=== PATIENT | male | born 1930 | race Caucasian/White ===

== ENCOUNTER 2017-11-23 08:49 | Observation (INO) | payer OTHER ==
[2017-11-23] MEDS ORDERED: ASPIRIN 81 MG CHEWABLE TAB PO ONE (08:57)
--- NOTE | 2017-11-23 09:02 | CPEKG ---
Heart Rate: 73 RR Interval: 822 P-R Interval: 192 QRSD Interval: 100 QT Interval: 408 QTC Interval: 450 P [place]: 43 QRS [place]: 27 T Wave [place]: 45 EKG Severity - NORMAL ECG - EKG Impression: SINUS RHYTHM Electronically Signed By: Crys Zuñiga 23-Nov-2017 09:11:46
--- NOTE | 2017-11-23 09:09 | EDPHY ---
H & P Time Seen by Provider: 11/23/17 08:57 HPI/ROS: HPI Chest pain, shortness of breath. 87-year-old male by private vehicle with his . This patient has a history of coronary artery disease. He has had 2 stents placed in the past about 5 years ago by his economics analyst Dr. Andrew Frances. He reports that he woke up this morning and at approximately 7:00 a.m. he noticed he had some pain in his left upper calf. She describes this as a cramping like sensation. He then developed left-sided chest pain described as sharp and squeezing with associated shortness of breath. Worse with exertion. He is currently on Plavix. No other antiplatelet or anticoagulant medications. Now as I am talking to him he denies any shortness of breath laying in his gurney. No chest pain at this time. No calf pain. ROS: Constitutional: No fever, no chills. No weakness. Eyes: No discharge. No changes in vision. ENT: No sore throat. No nasal congestion or rhinorrhea. Respiratory: No cough. As above. Cardiac: As above, no palpitations. Gastrointestinal: No abdominal pain, no vomiting, no diarrhea. Genitourinary: No hematuria. No dysuria or increased frequency with urination. Musculoskeletal: No back pain. No neck pain. As above. No myalgias or arthralgias. Skin: No rashes. Neurological: No headache. No focal weakness or altered sensation. Past medical history: As above. He takes a statin medication as well. Social history: Nonsmoker. Here with his . No alcohol. Physical Exam: General Appearance: Alert, no distress. This patient is responding to questions appropriately and in full sentences. This patient appears well- hydrated and well-nourished. Eyes: Pupils equal and round no pallor or injection. No lid edema, erythema or injection. Respiratory: There are no retractions, lungs are clear to auscultation with good air movement bilaterally. Cardiovascular: Regular rate and rhythm. No murmur. Gastrointestinal: Abdomen is soft and nontender, no masses, bowel sounds normal. No focal tenderness at McBurney's point. No Gabriel sign. Neurological: Motor sensory function is grossly intact. Cranial nerves are normal. Gait is normal. Skin: Warm and dry, no rashes. Musculoskeletal: Neck is supple and nontender. Extremities are symmetrical. No left-sided calf tenderness on palpation. No palpable cords in the left calf musculature. Negative Katy sign. All joints range without pain or impingement. Psychiatric: No agitation. No depression. Database: EKG: EKG time is 9:01 a.m.; EKG shows a narrow complex normal sinus rhythm with a ventricular rate of 73. The [place], QRS, QT intervals are within normal limits. There are no ST-T wave changes indicative of ischemic or injury pattern. No evidence of right heart strain. Interpreted by me. Imaging: Chest x-ray AP portable; the cardiac mediastinal silhouette is unremarkable. No evidence of infiltrate or pneumothorax. No acute cardiopulmonary disease process noted. Interpreted by me. Left lower extremity ultrasound; no evidence of DVT. He does have superficial clot lesser saphenous vein indicative of superficial thrombophlebitis. Results were discussed with staff radiologist Dr. Thomas Hodges. CT angiogram of chest; significant for extensive pulmonary embolism. Large PE distal left pulmonary artery. No saddle embolus left lingular segmental clot. Diffuse segmental clot on the right side. The right upper lobe is the least affected. Results were discussed with staff radiologist Dr. Thomas Hodges. Procedures: Emergency department course: IV placed. Vital signs reviewed. EKG obtained and reviewed by myself. He was given 324 mg of chewed aspirin. 9:40 a.m., patient re-evaluated. Resting comfortably at this time. No chest pain. No shortness of breath at rest. Results of elevated D-dimer discussed, need for CT angiogram of chest discussed. Patient endorses. 10:25 a.m., patient re-evaluated. Diagnosis discussed. Vital signs remained stable. No shortness of breath or chest pain at this time. Explained plan for admission and initial treatment with IV heparin. Hospitalist paged. 10:40 a.m., spoke with hospitalist. Patient accepted for admission to Dr. Scruggs. Patient started on IV heparin per protocol in the emergency department. Diagnosis and treatment plan discussed with patient and his . All their questions were answered. The patient was admitted to PCU in stable condition. Differential Diagnosis: The differential diagnosis on this patient includes but is not limited to DVT, PE, acute coronary syndrome, esophageal spasm, anxiety reaction. This represents a partial list of diagnoses considered. These considerations are based on history, physical exam, past history, reassessment and diagnostic testing. Smoking Status: Never smoked Constitutional: Initial Vital Signs Temperature (C) 36.7 C 11/23/17 08:50 Heart Rate 81 11/23/17 08:50 Respiratory Rate 16 11/23/17 08:50 Blood Pressure 119/79 11/23/17 08:50 O2 Sat (%) 91 L 11/23/17 08:50 O2 Delivery Mode Room Air Allergies/Adverse Reactions: Cephalosporins Allergy (Unknown, Verified 11/23/17 08:50) Home Medications: Medication Instructions Recorded Clopidogrel Bisulfate [Plavix] 75 mg PO DAILY 04/12/11 Ezetimibe/Simvastatin [Vytorin 1 each PO HS 04/12/11 10-40 Mg Tablet] Medical Decision Making - Diagnostics Imaging Results: Imaging Impressions Chest X-Ray 11/23/17 08:58 Impression: Negative portable chest. Extremity Venous Study 11/23/17 09:05 Impression: 1. No evidence of deep vein thrombosis in the left leg. 2. Acute/subacute thrombus in the mid calf left lesser saphenous vein consistent with superficial venous lumbar phlebitis. Findings and recommendations discussed with Crys Zuñiga MD at 10: 00 AM hour, 11/23/2017. Final report concurs with initial preliminary interpretation. - Data Points Laboratory Results: Laboratory Results 11/23/17 09:03 11/23/17 09:03 11/23/17 11/23/17 11/23/17 09:03 09:03 09:03 WBC 12.78 10^3/uL H 10^3/uL (3.80-9.50) RBC 5.09 10^6/uL 10^6/uL (4.40-6.38) Hgb 17.4 g/dL g/dL (13.7-17.5) Hct 49.6 % % (40.0-51.0) MCV 97.4 fL fL (81.5-99.8) MCH 34.2 pg H pg (27.9-34.1) MCHC 35.1 g/dL g/dL (32.4-36.7) RDW 13.7 % % (11.5-15.2) Plt Count 138 10^3/uL L 10^3/uL (150-400) MPV 9.8 fL fL (8.7-11.7) Neut % (Auto) 82.1 % H % (39.3-74.2) Lymph % (Auto) 8.6 % L % (15.0-45.0) Ogle % (Auto) 7.3 % % (4.5-13.0) Eos % (Auto) 0.9 % % (0.6-7.6) Baso % (Auto) 0.4 % % (0.3-1.7) Nucleat RBC Rel Count 0.0 % % (0.0-0.2) Absolute Neuts (auto) 10.50 10^3/uL H 10^3/uL (1.70-6.50) Absolute Lymphs (auto) 1.10 10^3/uL 10^3/uL (1.00-3.00) Absolute Monos (auto) 0.93 10^3/uL H 10^3/uL (0.30-0.80) Absolute Eos (auto) 0.11 10^3/uL 10^3/uL (0.03-0.40) Absolute Basos (auto) 0.05 10^3/uL 10^3/uL (0.02-0.10) Absolute Nucleated RBC 0.00 10^3/uL 10^3/uL (0-0.01) Immature Gran % 0.7 % % (0.0-1.1) Immature Gran # 0.09 10^3/uL 10^3/uL (0.00-0.10) PT 14.2 SEC SEC (12.0-15.0) INR 1.08 (0.83-1.16) APTT 36.9 SEC SEC (23.0-38.0) D-Dimer 5.09 ug/mLFEU H ug/mLFEU (0.00-0.50) Sodium 138 mEq/L mEq/L (135-145) Potassium 4.6 mEq/L mEq/L (3.5-5.2) Chloride 103 mEq/L mEq/L (97-110) Carbon Dioxide 24 mEq/l mEq/l (22-31) Anion Gap 11 mEq/L mEq/L (8-16) BUN 25 mg/dL H mg/dL (7-23) Creatinine 1.3 mg/dL mg/dL (0.7-1.3) Estimated GFR 52 Glucose 122 mg/dL H mg/dL (70-100) Calcium 9.1 mg/dL mg/dL (8.5-10.4) Creatine Kinase 35 IU/L IU/L (0-224) CK-MB (CK-2) Fraction 1.04 ng/mL ng/mL (0.00-3.19) Troponin I 0.014 ng/mL ng/mL (0.000-0.034) NT-Pro-B Natriuret Pep 125 pg/mL pg/mL (0-450) Medications Given: Discontinued Medications Aspirin (Aspirin) 324 mg PO EDNOW ONE Stop: 11/23/17 08:58 Last Admin: 11/23/17 09:10 Dose: 324 mg Departure - Departure Disposition: [facility] Inpatient Acute Clinical Impression: Chest pain, History of coronary artery disease, Pulmonary embolism, bilateral Referrals: Ethan Gaviria MD [Primary Care Provider] - As per Instructions
[2017-11-23 09:17] LABS: PLATELET COUNT 138 10^3/uL (150-400)
[2017-11-23 09:24] LABS: INR 1.08 (0.83-1.16); PROTIME(PATIENT) 14.2 SEC (12.0-15.0)
[2017-11-23 09:30] LABS: CREATINE KINASE 35 IU/L (0-224)
[2017-11-23] MEDS ORDERED: IOPAMIDOL (ISOVUE 370) 100 ML BTL IV ONE (09:47)
[2017-11-23] MEDS ORDERED: ENOXAPARIN 80 MG/0.8 ML SYR SC ONE (10:28)
[2017-11-23] MEDS ORDERED: HEPARIN 10,000 UNIT/10 ML MDV (1,000 UNIT/ML) IVP ONE ×2 (10:42→10:51)
[2017-11-23] MEDS ORDERED: HEPARIN/DEXTROSE 500 ML IV ONE (10:42)
[2017-11-23] MEDS ORDERED: oxyCODONE IR 5 MG TAB PO PRN (10:49)
[2017-11-23] MEDS ORDERED: ONDANSETRON 4 MG/2 ML VIAL IVP PRN (10:49)
[2017-11-23] MEDS ORDERED: ACETAMINOPHEN 325 MG TAB PO PRN (10:49)
[2017-11-23] MEDS ORDERED: ONDANSETRON DISINTEGRATING 4 MG TAB PO PRN (10:49)
[2017-11-23] MEDS ORDERED: HEPARIN 10,000 UNIT/10 ML MDV (1,000 UNIT/ML) IVP PRN (10:51)
[2017-11-23] MEDS ORDERED: HEPARIN/DEXTROSE 500 ML IV SCH (11:00)
[2017-11-23] MEDS ORDERED: CYCLOBENZAPRINE 10 MG TAB PO PRN (13:54)
--- NOTE | 2017-11-23 14:39 | PDGENHP ---
History and Physical - Chief Complaint Acute shortness of breath - History of Present Illness Primary care provider: Dr. Ethan Gaviria primary neurologist: Dr. Eugene Sparks Primary water and fire technician: Dr. Andrew Frances HPI: 87-year-old male presents with acute shortness of breath characterized as knee a on minimal exertion, ambulating from his bedroom to the kitchen, with associated dizziness, calf pain located in his left calf, characterized as cramping. The patient reports that he has been experiencing bilateral calf pain for probably 1 month, most significant at night, but he has not been massaging or squeezing his caps any degree. Onset of symptoms on the day of this presentation was approximately 7:00 a.m., and patient's shortness of breath was somewhat alleviated after he sat down. Now that he is at rest, the patient is otherwise feeling well. He does report that he has had approximately 6 months of word-finding difficulty, and this has not substantially increased in the recent past. He denied any recent extended travel although he does have a history of traveling internationally to and from [facility]. History Information - Allergies/Home Medication List Allergies/Adverse Reactions: Cephalosporins Allergy (Unknown, Verified 11/23/17 08:50) Home Medications: Clopidogrel Bisulfate [Plavix] 75 mg PO DAILY 04/12/11 [Last Taken 11/23/17] Ezetimibe/Simvastatin [Vytorin 10-40 Mg Tablet] 1 each PO HS 04/12/11 [Last Taken 11/23/17] Cyclobenzaprine [Flexeril 10 MG (*)] 5 mg PO DAILY PRN 11/23/17 [Last Taken ] I have personally reviewed and updated: family history, medical history, social history, surgical history - Past Medical History coronary artery disease (With 2 cardiac stents approximately 5 years ago) Additional medical history: Prostate cancer. Neuropathy. 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 internationally to [facility] for service trips, he has not traveled extensively over the past 3 months Review of Systems Review of Systems: ROS: 10pt was reviewed & negative except for what was stated in HPI & below Respiratory: Reports: shortness of breath Muscolosketal: Reports: other (Calf pain) Physical Exam Physical Exam: Temp Pulse Resp BP Pulse Ox 36.7 C 68 18 161/92 H 92 11/23/17 08:50 11/23/17 10:41 11/23/17 10:41 11/23/17 10:41 11/23/17 10:41 Constitutional: no apparent distress, appears nourished, not in pain Eyes: PERRL, anicteric sclera, EOMI Ears, Nose, Mouth, Throat: moist mucous membranes, hearing normal, ears appear normal, no oral mucosal ulcers Cardiovascular: regular rate and rhythym, no murmur, rub, or gallop, edema ( Trace left lower extremity) Respiratory: no respiratory distress, no rales or rhonchi, clear to auscultation Gastrointestinal: normoactive bowel sounds, soft, non-tender abdomen, no palpable masses Skin: other (Normal warmth, normal color, no erythema over the left calf) Musculoskeletal: other (No muscular tenderness on palpation of the bilateral calves, full range of motion bilateral knees) Neurologic: AAOx3, sensation intact bilaterally, other (Very intentional speech , unclear whether the patient has a mild expressive aphasia), No weakness, No facial droop Psychiatric: interacting appropriately, not anxious, not encephalopathic, thought process linear Lab Data & Imaging Review 11/23/17 09:03 11/23/17 09:03 WBC 12.78 10^3/uL (3.80-9.50) H 11/23/17 09:03 RBC 5.09 10^6/uL (4.40-6.38) 11/23/17 09:03 Hgb 17.4 g/dL (13.7-17.5) 11/23/17 09:03 Hct 49.6 % (40.0-51.0) 11/23/17 09:03 MCV 97.4 fL (81.5-99.8) 11/23/17 09:03 MCH 34.2 pg (27.9-34.1) H 11/23/17 09:03 MCHC 35.1 g/dL (32.4-36.7) 11/23/17 09:03 RDW 13.7 % (11.5-15.2) 11/23/17 09:03 Plt Count 138 10^3/uL (150-400) L 11/23/17 09:03 MPV 9.8 fL (8.7-11.7) 11/23/17 09:03 Neut % (Auto) 82.1 % (39.3-74.2) H 11/23/17 09:03 Lymph % (Auto) 8.6 % (15.0-45.0) L 11/23/17 09:03 [place] % (Auto) 7.3 % (4.5-13.0) 11/23/17 09:03 Eos % (Auto) 0.9 % (0.6-7.6) 11/23/17 09:03 Baso % (Auto) 0.4 % (0.3-1.7) 11/23/17 09:03 Nucleat RBC Rel Count 0.0 % (0.0-0.2) 11/23/17 09:03 Absolute Neuts (auto) 10.50 10^3/uL (1.70-6.50) H 11/23/17 09:03 Absolute Lymphs (auto) 1.10 10^3/uL (1.00-3.00) 11/23/17 09:03 Absolute Monos (auto) 0.93 10^3/uL (0.30-0.80) H 11/23/17 09:03 Absolute Eos (auto) 0.11 10^3/uL (0.03-0.40) 11/23/17 09:03 Absolute Basos (auto) 0.05 10^3/uL (0.02-0.10) 11/23/17 09:03 Absolute Nucleated RBC 0.00 10^3/uL (0-0.01) 11/23/17 09:03 Immature Gran % 0.7 % (0.0-1.1) 11/23/17 09:03 Immature Gran # 0.09 10^3/uL (0.00-0.10) 11/23/17 09:03 PT 14.2 SEC (12.0-15.0) 11/23/17 09:03 INR 1.08 (0.83-1.16) 11/23/17 09:03 APTT 36.9 SEC (23.0-38.0) 11/23/17 09:03 D-Dimer 5.09 ug/mLFEU (0.00-0.50) H 11/23/17 09:03 Sodium 138 mEq/L (135-145) 11/23/17 09:03 Potassium 4.6 mEq/L (3.5-5.2) 11/23/17 09:03 Chloride 103 mEq/L (97-110) 11/23/17 09:03 Carbon Dioxide 24 mEq/l (22-31) 11/23/17 09:03 Anion Gap 11 mEq/L (8-16) 11/23/17 09:03 BUN 25 mg/dL (7-23) H 11/23/17 09:03 Creatinine 1.3 mg/dL (0.7-1.3) 11/23/17 09:03 Estimated GFR 52 11/23/17 09:03 Glucose 122 mg/dL (70-100) H 11/23/17 09:03 Calcium 9.1 mg/dL (8.5-10.4) 11/23/17 09:03 Creatine Kinase 35 IU/L (0-224) 11/23/17 09:03 CK-MB (CK-2) Fraction 1.04 ng/mL (0.00-3.19) 11/23/17 09:03 Troponin I 0.014 ng/mL (0.000-0.034) 11/23/17 09:03 NT-Pro-B Natriuret Pep 125 pg/mL (0-450) 11/23/17 09:03 Visualized and Interpreted EKG results: Yes EKG Interpretation: Positive for: other (Normal sinus rhythm without any abnormalities) Assessment & Plan Assessment: 87-year-old male presenting with acute pulmonary embolism and acute deep venous thrombosis Plan: 1. Pulmonary embolism. Present on admission, secondary to deep venous thrombosis. Acute, new problem this provider, further workup indicated. Pulmonary embolism severity index score of 126, conferring class 5 very high risk of 30 day mortality, between 10 and 24%, driven by his age, gender, history of prostate cancer -that being said, the patient is resting comfortably without any vital sign abnormalities, and personal interpretation of his chest CT is that he does not have any evidence of pulmonary infarction -we have initiated the patient on systemic anticoagulation with heparin, given his renal impairment and I began the conversation with the patient regarding long-term oral systemic anticoagulation, we will make a determination whether to pursue Coumadin or DOAC tomorrow a.m. depending on his renal function -give 1 dose of oral Coumadin now, check INR in a.m., continue heparin drip -gauge patient's pulmonary exercise tolerance with physical therapy evaluation, monitor for limiting symptoms -get PSA level -discussed with the patient whether he should pursue outpatient colonoscopy, defer that to the outpatient setting -discussed with patient duration of therapy, outpatient follow-up D-dimer level , currently 5 -BNP and troponin both normal, low utility of echocardiogram at this juncture 2. Deep venous thrombosis. Present on admission, left lower extremity, suspect that the patient had a deeper vein clot which has embolized and caused pulmonary emboli, ultrasound demonstrates superficial left saphenous clot, likely residual -hold on TEDs until patient is adequately systemically anticoagulated 3. Coronary artery disease. Chronic, stents 5 years ago, currently on Plavix -will discuss with the covering water and fire technician whether it is appropriate for the patient to be adjusted to aspirin therapy to be used in conjunction with his systemic anticoagulation -continue Vytorin 4. Acute kidney injury. Unclear whether the patient has [place] versus CKD, will provide normal saline overnight, recheck creatinine level in a.m., send fractional excretion of sodium tomorrow if remains elevated, ultimately affects the decision as to his methods of systemic anticoagulation. 5. Suspected mild cognitive impairment. Review of outside records demonstrates MRI on 10/15/2016 demonstrating atrophy, microvascular disease -will you all the information above with patient and his tomorrow so that she is able to receive this information as well Diet. Cardiac Prophylaxis. High risk patient, currently systemically anticoagulated Code. Full per patient, his is MD PALOMARES Disposition. Anticipated discharge is 11/24/2017, pending stabilization of condition outlined above. If patient requires ongoing heparin drip or worsening renal impairment, then he will require additional length of stay for reasonable medical necessity and will be upgraded to inpatient admission status at that time. Discussed with Haven Maurer, hospitalist provider, she has signed out the patient to me for evaluation.
[2017-11-23] MEDS: WARFARIN SODIUM 5 MG TAB PO SCH (18:45)
[2017-11-23 18:57] LABS: INR 1.16 (0.83-1.16)
[2017-11-23] MEDS ORDERED: ATORVASTATIN CALCIUM 20 MG TAB PO SCH (21:00)
[2017-11-23] MEDS ORDERED: EZETIMIBE 10 MG TAB PO SCH (21:00)
[2017-11-24 04:46] LABS: PLATELET COUNT 121 10^3/uL (150-400)
[2017-11-24 04:51] LABS: INR 1.18 (0.83-1.16); PROTIME(PATIENT) 15.2 SEC (12.0-15.0)
[2017-11-24] MEDS ORDERED: CLOPIDOGREL BISULFATE 75 MG TAB PO SCH (09:00)
[2017-11-24 11:33] VITALS: BP 121/68; PULSE 62; RESP 21; TEMP 98.2
--- NOTE | 2017-11-24 13:33 | PDHOMEO2F ---
Home Oxygen Face to Face Home Orders: I certify that a physician or a nurse practitioner or physician's head start assistant teacher has had a [id number] encounter with this patient on the date of this order due to the diagnosis listed, which relates to the primary reason the patient requires home oxygen. Alternative treatments have been tried, or considered, and deemed ineffective. It is anticipated that supplemental oxygen will result in improvement with treatment. Home oxygen qualifying diagnosis: Venous thromboembolism Home oxygen secondary diagnosis: Chronic coronary artery disease SpO2 on room air (%): 87 Frequency of home oxygen needed: continuous Home oxygen liters per minute: 2 Home oxygen delivery device: nasal cannula Concentrator: Yes E-tanks for mobility and back up: Yes If ordering portable O2, is the patient mobile in the home?: Yes I certify that, based on these findings, the home oxygen is medically necessary for this patient for the following length of time. Length of time home oxygen needed: 1 month
[2017-11-24] MEDS ORDERED: ENOXAPARIN 80 MG/0.8 ML SYR SC SCH (13:45)
[2017-11-24] MEDS: WARFARIN SODIUM 5 MG TAB PO SCH (15:28)
[2017-11-24 15:58] VITALS: O2SAT 94
--- NOTE | 2017-11-24 18:57 | PDDCSUM ---
Discharge Summary Discharge Summary: DISCHARGE SUMMARY FOLLOW-UP ITEMS: Reassess oxygen needs as an outpatient DATE OF ADMISSION: 11/23/2017 DATE OF DISCHARGE: 11/24/2017 DISCHARGE DIAGNOSES: 1. Acute pulmonary embolism present on admission 2. Suspected acute deep venous thrombosis, present on admission 3. Chronic coronary artery disease 4. Possible chronic kidney disease stage 3 5. Acute atelectasis CONSULTATIONS: None PROCEDURES / IMAGING: Ultrasound of the bilateral lower extremities demonstrates left saphenous vein clot CT angiogram demonstrates large volume left lower lobe pulmonary embolism, as well as right middle lobe CHIEF COMPLAINT: Acute shortness of breath SUBJECTIVE: Patient is feeling well at time discharge, he is symptomatically short of breath with ambulation across the room PHYSICAL EXAM ON DISCHARGE: SpO2 was 87% on room air at rest, systolic blood pressure 140, heart rate 60, afebrile overnight, satting on 2 L nasal cannula, alert awake oriented x3, no apparent distress, mildly reduced inspiration in the left base, with some inspiratory crackles, no expiratory wheezes, alert awake oriented x3, heart rhythm is regular, with regular rate, left lower extremity is mildly full and edematous, nontender LABS ON DISCHARGE: PSA normal, creatinine 1.1, potassium 4.4, white blood count 8100, hemoglobin 16.4, platelets to 120,000 HOSPITAL COURSE BY PROBLEM: The patient presented with a symptomatic acute large volume pulmonary embolism, affecting the right middle lobe and the entire circulation to the left lower lobe, resulting in acute atelectasis in the left lower lobe, as well as hypoxia , worse with ambulation. The cause of his pulmonary embolism was a suspected left lower extremity deep venous thrombosis, which most likely broke off and completely embolized. He did have residual clot in the left saphenous vein and has noted lower extremity edema and calf cramping prior to presentation. Given the patient's high pulmonary embolism severity index score, driven by his previous history of malignancy, hypoxia, age and gender, the patient warranted observation overnight as well as initiation of IV anticoagulation. The patient has a class 5 very high risk of 30 mortality, between 10 and 24%, and a substantial amount of time was spent educating the patient and his family, counseling regarding methods of anticoagulation, discussing signs of bleeding, and developing a follow-up care plan. After thorough discussion, the patient decided to utilize Lovenox bridging therapy with Coumadin, given his possibility of underlying stage 3 chronic kidney disease secondary to age- related decline in GFR. The patient will utilize the bridging Lovenox for the next 4 days, have PT and INR checked on Monday, as well as a serum creatinine level, with Coumadin dosage adjustments thereafter to take place at the [facility]. I also discussed his Plavix dosing with his primary liquid hydrogen plant operator, and I was instructed to hold his Plavix while on Coumadin, to be reassessed when the patient is coming off of systemic anticoagulation. I counseled the patient that he should follow up with his primary care provider next week, and discuss the duration of therapy. The patient may require a D- dimer to be drawn prior to discontinuing his systemic anticoagulation, and then further imaging if the D-dimer is elevated. He may also warrants an echocardiogram with bubble study to determine whether he has a PFO, which would be an indication for lifelong systemic anticoagulation in a patient who has been having intermittent symptoms of dysarthria for approximately 6 months prior to this presentation. I also recommend that his primary care provider evaluate him further for chronic kidney disease and potentially refer him to a fountain vending mechanic if indicated. At the time of discharge, the patient does have an oxygen saturation of 87% on room air, he does require supplemental oxygen for discharge. He will reassess his oxygen needs with his primary care provider. He is not currently experiencing any chest pain or signs of pulmonary infarction. He does have acute atelectasis requiring incentive spirometer, I have educated the patient regarding the use there of. DISCHARGE MEDICATIONS: Please see official discharge medication reconciliation sheet in chart , Lovenox 80 mg twice daily for 9 subsequent doses, Coumadin 5 mg daily to be titrated in the outpatient setting, discontinuation of Plavix. DISCHARGE INSTRUCTIONS: Please follow up with primary care provider next week, Coumadin Clinic next Monday. TIME SPENT: Greater than 30 minutes were spent on direct patient care, as well as discharge planning and preparation.
== END 2017-11-24 16:00 | disposition home or self-care (01) ==
LOC: INTOOBSV 10:44 → F3E 18:10
PROVIDERS: ADMIT Internal Medicine; ATTEND Internal Medicine
DX: I26.99 Other pulmonary embolism without acute cor pulmonale (principal); I80.292 Phlebitis and thrombophlebitis of other deep vessels of left lower extremity; N28.9 Disorder of kidney and ureter, unspecified; N17.9 Acute kidney failure, unspecified; J98.11 Atelectasis; R09.02 Hypoxemia; I25.10 Atherosclerotic heart disease of native coronary artery without angina pectoris; Z85.46 Personal history of malignant neoplasm of prostate; Z95.5 Presence of coronary angioplasty implant and graft
CPT/HCPCS: 71045; 71275; 93005; 93971; 97161; G0378; G8978; G8979; J1644; J1650; Q9967; 85520-90; G0103

== ENCOUNTER 2017-12-18 09:33 | Emergency (ER) | payer OTHER ==
[2017-12-18 09:41] VITALS: PULSE 72; RESP 16; TEMP 98.6; O2SAT 95
--- NOTE | 2017-12-18 09:50 | EDPHY ---
H & P Time Seen by Provider: 12/18/17 09:45 HPI/ROS: CHIEF COMPLAINT: Right ankle pain HISTORY OF PRESENT ILLNESS: 87-year-old male arrives via private vehicle complaining of acute right ankle pain. States that last evening as he is getting out of his recliner he twisted his right ankle. He is unable to bear weight. He has his own home crutches which he has been using a wrapped with an Clint bandage. Complaining of pain to the lateral malleolus. Intact skin. No discoloration. No proximal pain. No foot injury or pain. No fall from height. PRIMARY CARE PROVIDER: Dr. Ethan Gaviria REVIEW OF SYSTEMS: A ten point review of systems was performed and is negative with the exception of the items mentioned in the HPI PHYSICAL EXAM (Prior to examination, patient consented to physical exam, hands were washed and my usual and customary physical exam procedures followed) 1) GENERAL: Well-developed, well-nourished, alert and oriented. Appears to be in no acute distress. 2) HEAD: Normocephalic 3) HEENT: Pupils equal, round, reactive to light bilaterally. 4) LUNGS: Breathing comfortably. 5) MUSCULOSKELETAL: Right lower extremity: Ankle Clint wrap in place, taken down revealing normal appearing skin. Tender to palpation lateral malleolus. No signs of infection or cellulitis proximal tibia and fibula nontender .5th MT nontender negative Frances test, compartments soft 6) SKIN: intact 7) VASCULAR: DP,PT pulses and cap refill present and brisk DIFFERENTIAL DIAGNOSIS: in no particular order including but not limited to fracture, sprain, compartment syndrome Procedure: Crutches Patient has his own pre-hospital crutches which were appropriately sized by ER staff with crutch walking instructions and observed crutch walking with success. Procedure: Splint A postop shoe splint was applied by ER dialysis patient care technician. After application of the splint I returned and re-examined the patient. The splint was adequately immobilizing the joint and distal to the splint the patient's circulation and sensation were intact. Patient shows no signs of compartment syndrome. Was given orthopedic precautions. Smoking Status: Never smoked Constitutional: Initial Vital Signs Temperature (C) 37.0 C 12/18/17 09:37 Heart Rate 72 12/18/17 09:37 Respiratory Rate 16 12/18/17 09:37 O2 Sat (%) 95 12/18/17 09:37 O2 Delivery Mode Room Air Allergies/Adverse Reactions: Cephalosporins Allergy (Unknown, Verified 11/23/17 08:50) Home Medications: Medication Instructions Recorded Ezetimibe/Simvastatin [Vytorin 1 each PO HS 04/12/11 10-40 mg Tablet] Warfarin Sodium [Coumadin 5MG (*)] 5 mg PO DAILY AT 4PM #30 tab 11/24/17 MDM/Departure - [facility] ED Course/Re-evaluation: Super evaluations performed on patient, neurovascularly intact, soft compartments, no evidence of compartment syndrome. Given usual and customary orthopedic precautions and instructions and follow-up information. Care of patient under supervision of secondary supervising physician Dr Hammonds . - Depart Disposition: Home, Routine, Self-Care Clinical Impression: Right ankle sprain Qualifiers: Encounter type: initial encounter Involved ligament of ankle: unspecified ligament Qualified Code(s): S93.401A - Sprain of unspecified ligament of right ankle, initial encounter Condition: Good Instructions: Ankle Sprain (ED) Additional Instructions: Return to the ER immediately if you experience discoloration, have worsening pain, numbness, tingling, or any other symptoms that concern you. If you received x-rays in the emergency department today, be advised, that ligamentous , tendon, muscular, and other non-bony injury cannot be fully ruled out. Try to keep your affected extremity elevated above the level of your chest, and keep cold packs on the affected area, for the next 48 hours. Referrals: Eddie Thornton MD [Medical Doctor] - As per Instructions
[2017-12-18] MEDS ORDERED: LET GEL TOPICAL 1 EA SYR TP ONE (10:18)
== END 2017-12-18 10:34 | disposition home or self-care (01) ==
DX: S93.401A Sprain of unspecified ligament of right ankle, initial encounter (principal); Z79.01 Long term (current) use of anticoagulants; X50.9XXA Other and unspecified overexertion or strenuous movements or postures, initial encounter; Y93.89 Activity, other specified
CPT/HCPCS: 73610; 99283; L4386

== ENCOUNTER → 2018-03-30 | Outpatient (CLI) | payer OTHER | LOC: BMCIMAGING 12:29 | PROVIDERS: ATTEND Internal Medicine | DX: M54.6 Pain in thoracic spine (principal) ==

== ENCOUNTER → 2018-04-10 | Outpatient (CLI) | payer OTHER | LOC: BMCIMAGING 12:26 | PROVIDERS: ATTEND Internal Medicine | DX: M40.204 Unspecified kyphosis, thoracic region (principal); M51.34 Other intervertebral disc degeneration, thoracic region ==

== ENCOUNTER → 2018-04-24 | Outpatient (CLI) | payer OTHER | LOC: FIMAGING 18:41 | PROVIDERS: ATTEND Internal Medicine | DX: M51.24 Other intervertebral disc displacement, thoracic region (principal); M48.04 Spinal stenosis, thoracic region; M51.34 Other intervertebral disc degeneration, thoracic region ==

== ENCOUNTER → 2019-01-11 | Outpatient (CLI) | payer OTHER | LOC: FIMAGING 10:15 | PROVIDERS: ATTEND Physical Medicine & Rehabilitation | DX: M54.9 Dorsalgia, unspecified (principal); Z85.46 Personal history of malignant neoplasm of prostate | CPT/HCPCS: 78300; A9503 ==

== ENCOUNTER → 2019-01-16 | Outpatient (CLI) | payer OTHER | LOC: BMCIMAGING 09:18 | PROVIDERS: ATTEND Physical Medicine & Rehabilitation | DX: Z13.820 Encounter for screening for osteoporosis (principal); M51.24 Other intervertebral disc displacement, thoracic region ==

== ENCOUNTER → 2019-01-31 | Outpatient (CLI) | payer OTHER ==
[~2019-01-31] MED LIST: GADOBUTROL 10 ML VIAL IVP ONE
== END ==
LOC: FIMAGING 10:16
PROVIDERS: ATTEND Physical Medicine & Rehabilitation
DX: M54.6 Pain in thoracic spine (principal); E21.2 Other hyperparathyroidism
CPT/HCPCS: 72157; 76536; A9585; 82565-PO

== ENCOUNTER → 2019-04-03 | Outpatient (CLI) | payer OTHER | LOC: FIMAGING 09:39 ==